=== PATIENT | female | born 1970 | race Caucasian/White ===

== ENCOUNTER 2018-05-05 15:04 | Emergency (ER) | payer BC ==
[2018-05-05 15:33] VITALS: BP 115/70
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
== END 2018-05-05 16:05 | disposition home or self-care (01) ==
LOC: UCCORT 15:04
DX: J06.9 Acute upper respiratory infection, unspecified (principal); K50.90 Crohn's disease, unspecified, without complications; H66.91 Otitis media, unspecified, right ear; J98.01 Acute bronchospasm; Z88.0 Allergy status to penicillin; Z88.1 Allergy status to other antibiotic agents
CPT/HCPCS: 99212; G0463